=== PATIENT | female | born 1930 | race Caucasian/White ===

== ENCOUNTER → 2016-09-30 | Outpatient (CLI) | payer MEDICARE, OTHER ==
[~2016-09-30] MED LIST: ALPR1TAB7 PO; ATEN25TA PO; ATOR10TA PO; CHOL100018 PO; CYAN500T2 PO; HYDR-3989 PO; LEVO100T12 PO; SULF1TAB42 PO; UBID100C10 PO
--- NOTE | 2016-09-30 11:10 | DI ---
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 Approximately 60 minutes later 3D PET/CT imaging was performed from the skull base through the mid thighs. The CT images are for attenuation correction purposes only. Findings: No areas of abnormal metabolic activity identified in the skull base or neck. Continued thyroid uptake. Increasing moderate right and small left pleural effusions. No metabolically active pulmonary nodules or masses. Expected myocardial uptake. No FDG avid axillary or mediastinal adenopathy. Heart remains enlarged. No hypermetabolic liver masses seen. Cholelithiasis. Expected genitourinary and bowel uptake. The prior metabolically active node in the left abdominal mesentery has decreased in size with interval resolution of the hypermetabolism. No metabolically active mesenteric or retroperitoneal lymphadenopathy currently. No areas of worrisome skeletal uptake. Impression: No FDG avid metastatic disease. .
== END ==
LOC: IMA 06:36
PROVIDERS: ATTEND Internal Medicine Medical Oncology
DX: C82.08 Follicular lymphoma grade I, lymph nodes of multiple sites (principal)
CPT/HCPCS: 78815; A9552

== ENCOUNTER → 2016-10-06 | Outpatient (CLI) | payer MEDICARE, OTHER ==
[2016-10-06 10:17] LABS: BASOPHILS # (AUTO) 0.1 T/MM3 (0-0.2); BASOPHILS % (AUTO) 2.3 % (0-2); EOSINOPHILS # (AUTO) 0.2 T/MM3 (0-0.5); EOSINOPHILS % (AUTO) 9.3 % (0-4); HCT - HEMATOCRIT 39.6 % (36-46); HGB - HEMOGLOBIN 12.9 GM/DL (12-16); LYMPHOCYTES # (AUTO) 0.6 T/MM3 (1-4.8); LYMPHOCYTES % (AUTO) 27.6 % (23-45); MEAN CORPUSCULAR HGB 31.5 UUG (26-34); MEAN CORPUSCULAR HGB CONC(MCHC 32.6 GM/DL (31-37); MEAN CORPUSCULAR VOLUME 96.6 UM3 (80-100); MEAN PLATELET VOLUME 10.1 UM3 (9.4-12.4); MONOCYTES # (AUTO) 0.5 T/MM3 (0-0.8); NEUTROPHILS #(AUTO)-ABSOLUTE 0.9 T/MM3 (1.8-7.7); NEUTROPHILS % (AUTO) 39.8 % (33-66); WBC - WHITE BLOOD COUNT 2.1 T/MM3 (4.5-11.0)
[2016-10-06 10:28] LABS: ALBUMIN 4.3 G/DL (3.5-5.0); ALBUMIN/GLOBULIN RATIO 1.9 RATIO (1.1-2.2); ALKALINE PHOSPHATASE 59 U/L (38-126); ALT (SGPT) 32 U/L (9-52); ANION GAP 10 MEQ/L (5-15); AST (SGOT) 21 U/L (14-36); BUN/CREATININE RATIO 20 RATIO (6-26); CALCIUM 9.6 MG/DL (8.4-10.2); CHLORIDE 102 MEQ/L (98-107); CO2 - CARBON DIOXIDE 30 MEQ/L (22-30); CREATININE 0.8 MG/DL (0.7-1.2); GLOMERULAR FILTRATION RATE 68; GLUCOSE 86 MG/DL (65-110); POTASSIUM 4.6 MEQ/L (3.6-5); SODIUM 142 MEQ/L (134-144); TOTAL PROTEIN 6.6 G/DL (6.3-8.2)
== END ==
LOC: LAB 09:59
PROVIDERS: ATTEND Internal Medicine Medical Oncology
DX: C82.08 Follicular lymphoma grade I, lymph nodes of multiple sites (principal)
CPT/HCPCS: 36415; 80053; 85025